=== PATIENT | female | born 1970 | race Caucasian/White ===

== ENCOUNTER → 2020-04-09 09:56 | Outpatient (BNVA) | payer OTHER, SELFPAY | PROVIDERS: PCP Internal Medicine; Visit Provider Hospitalist | DX: Z76.89 Persons encountering health services in other specified circumstances (principal) ==

== ENCOUNTER 2020-04-13 15:55 | Outpatient (REF) | payer OTHER, SELFPAY | END 2020-04-13 15:56 | disposition home or self-care (01) | LOC: HO.CT 15:55 | PROVIDERS: PCP Internal Medicine; Visit Provider Hospitalist | DX: I26.99 Other pulmonary embolism without acute cor pulmonale (principal); R07.81 Pleurodynia ==

== ENCOUNTER 2020-05-08 07:50 | Outpatient (REF) | payer OTHER, SELFPAY ==
--- NOTE | 2020-05-08 07:52 | CT_ITS ---
EXAMINATION: CT ANGIOGRAM OF THE CHEST WITH AND WITHOUT CONTRAST (CT PULMONARY ANGIOGRAM FOR PE) CLINICAL INFORMATION: Reason for Exam I26.99 - Other pulmonary embolism without acute cor pulmonal COMPARISON: None TECHNIQUE: Prior to contrast administration, noncontrast localization images were obtained. Subsequently, multidetector volumetric imaging was performed from the thoracic inlet to below the diaphragms following the administration of 70 mLOmnipaque 350 intravenous contrast. No contrast reaction reported Sagittal, coronal, and MIP oblique sagittal reformatted images were obtained on the CT workstation, uploaded to PACS, and reviewed. This CT examination was performed using dose optimization techniques as appropriate, variously including the following: *Automated exposure control *Adjustment of mA and/or kV according to patient size (this includes techniques or standardized protocols for targeted exams where dose is matched to indication/reason for exam; i.e. extremities or head) *Use of iterative reconstruction technique Total exam dose-length product 187 mGy-cm FINDINGS: QUALITY OF STUDY/CONTRAST BOLUS: Satisfactory. PULMONARY ARTERIES: No central or segmental pulmonary emboli. THORACIC AORTA: No aneurysm or dissection. LUNG: The lungs are well-expanded and clear of acute process. There are small scattered pulmonary cysts in both upper lobes. PLEURA: No pleural effusion or pneumothorax. MEDIASTINUM: Normal heart size. No pericardial effusion. No hilar or mediastinal lymphadenopathy. No evidence of septal bowing or right heart strain. CHEST WALL/AXILLA: No axillary or internal mammary lymphadenopathy. OSSEOUS STRUCTURES: No acute or suspicious osseous abnormality. There is mild spondylosis dorsal spine. UPPER ABDOMEN: Visualized liver and spleen is unremarkable, No reflux of contrast into the hepatic veins to suggest elevated right heart pressures. CT/CT angio chest PE protocol IMPRESSION: No evidence of PE. No evidence of aortic dissection or aneurysm. Small pulmonary cysts in both upper lobes. VTE: Negative.
[2020-05-08] MEDS: iohexoL 350 MG/ML 100 ML INFUS..BTL IV (09:04)
== END 2020-05-08 07:51 | disposition home or self-care (01) ==
LOC: HO.CT 07:50
PROVIDERS: PCP Internal Medicine; Visit Provider Hospitalist
DX: I26.99 Other pulmonary embolism without acute cor pulmonale (principal)
CPT/HCPCS: 71275

== ENCOUNTER → 2020-08-07 09:01 | Outpatient (BNVA) | payer OTHER, SELFPAY | PROVIDERS: PCP Internal Medicine; Visit Provider Hospitalist ==

== ENCOUNTER → 2020-08-21 08:36 | Outpatient (BNV) | payer OTHER, SELFPAY | PROVIDERS: PCP Internal Medicine; Visit Provider Internal Medicine | DX: I26.99 Other pulmonary embolism without acute cor pulmonale (principal) | CPT/HCPCS: 99213; 99214 ==

== ENCOUNTER → 2021-02-11 14:57 | Outpatient (BNVA) | payer OTHER, SELFPAY | PROVIDERS: PCP Internal Medicine; Visit Provider Internal Medicine Cardiovascular Disease | DX: I27.82 Chronic pulmonary embolism (principal); R00.0 Tachycardia, unspecified | CPT/HCPCS: 93005 ==

== ENCOUNTER → 2021-08-30 13:59 | Outpatient (BNVA) | payer OTHER, SELFPAY | PROVIDERS: PCP Internal Medicine; Visit Provider Hospitalist ==

== ENCOUNTER 2021-10-17 10:47 | Outpatient (REF) | payer OTHER, SELFPAY ==
--- NOTE | ~2021-10-17 | XR_ITS ---
EXAMINATION: XR CHEST CLINICAL INFORMATION: J98.4 - Other disorders of lung COMPARISON: Chest radiographs 03/19/2020, 12/09/2019, CTA chest 04/13/2020 TECHNIQUE: 2 views of the chest were obtained. FINDINGS: The lungs are clear. The vascularity is normal. There is no airspace consolidation or groundglass opacity or effusion. The heart is normal in size. The hilar and mediastinal contours are normal. No visible acute bony abnormality. XR/XR chest 2V IMPRESSION: Unremarkable examination.
== END 2021-10-17 10:48 | disposition home or self-care (01) ==
LOC: HO.XRAY 10:47
PROVIDERS: PCP Internal Medicine; Visit Provider Hospitalist
DX: R07.81 Pleurodynia (principal); J98.4 Other disorders of lung
CPT/HCPCS: 71046

== ENCOUNTER → 2022-01-31 11:19 | Outpatient (BNVA) | payer OTHER, SELFPAY | PROVIDERS: PCP Internal Medicine; Visit Provider Internal Medicine Cardiovascular Disease | DX: R06.02 Shortness of breath (principal); R00.0 Tachycardia, unspecified; I27.82 Chronic pulmonary embolism | CPT/HCPCS: 93005 ==

== ENCOUNTER → 2022-03-12 09:20 | Outpatient (REF) | payer OTHER, SELFPAY ==
--- NOTE | 2022-03-12 09:23 | CA_ITS ---
Transthoracic Echocardiogram Patient (Last, First, Middle): Anay Singletary, Gender: Female Date of : 1970 Age: 51 Procedure Date: 03/12/2022 Procedure Type: Transthoracic Echocardiogram Location: OP Height: 157.48 cm Weight: 107.5 kg BSA: 2.05 m2 Heart Rate: 55 bpm BP: 120 / 70 mmHg Brazing Machine Feeder: JEAN Referring MD: Americo De La Vega MD Ip Litigation Associate: Americo De La Vega MD Symptoms: R06.02 - Shortness of breath Study Quality: Adequate ECG Rhythm: Bradycardia Conclusions: - 1. Normal LV systolic and diastolic function 2. Mild mitral regurgitation 3. No gross pericardial effusion Findings Left Ventricle Normal left ventricular size, thickness, and systolic function. The visually estimated ejection fraction is between 55-60%. Spectral Doppler is indicative of a normal filling pattern. Peak GLS is -16.4%, which is marginally reduced. Right Ventricle Normal right ventricular cavity size and systolic function. Atria Both atria are normal in size. There is lipomatous hypertrophy of the interatrial septum. Interatrial shunt cannot be excluded. Aortic Valve Normal aortic valve structure and function. There is no aortic valve stenosis. There is no aortic valve regurgitation. Mitral Valve Normal mitral valve structure and function. There is mild mitral valve regurgitation. There is no mitral valve stenosis. Pulmonic Valve The pulmonic valve was not well visualized. Tricuspid Valve Likely normal tricuspid valve structure and function. There is trace tricuspid valve regurgitation. Tricuspid regurgitation envelope is inadequate for calculation of right ventricular systolic pressure. Normal right atrial pressure. Great Vessels All visible segments of the aorta are normal in size. The pulmonary artery was not well visualized. Venous The inferior vena cava is normal in size and collapses greater than 50% with inspiration. Pericardium/Pleural There is no evidence of pericardial effusion. Prior Study Comparison No significant change compared to prior study dated: 01/12/2020. Measurements 2D Linear Measurements IVSd: 0.78 0.6-0.9/0.6-1.0 cm LVIDd: 5.26 3.9-5.3/4.2-5.9 cm LVIDd Index: 2.57 2.4-3.2/2.2-3.1 cm/m2 LVIDs: 3.17 2.0-3.6 cm LVPWd: 0.61 0.7-1.1 cm LA Diam: 4.10 2.7-3.8/3.0-4.0 cm LAIDs Index: 2.00 1.5-2.3 cm/m2 LV Mass: 153.53 67-162/88-224 g LV Mass Index: 74.89 43-95/49-115 g/m2 LVOT Diam: 2.00 3.0+(-)1.3 cm 2D Systolic Function EF 4C: 50.70 >55% EF 2C: 63.80 >55% EF BiP: 59.00 >55% Mitral Valve MV Pk E: 0.71 MV PK A: 0.30 MV Decel Time: 218.00 E/A: 2.40 E'Lateral: 13.70 E'Medial: 9.25 E/E' Med: 7.70 E/E' Lat: 5.20 PHT: 64.00 MVA PHT: 3.44 Decel Berrien: 3.27 Aortic Valve AoV Pk Jerome: 1.40 AoV Mn Jerome: 1.03 AoV VTI: 0.34 AoV Pk Grad: 8.00 Aov Mn Grad: 5.00 MAYRA Cont.VTI: 2.03 LVOT LVOT Pk Jerome: 0.84 LVOT Mn Jerome: 0.63 LVOT VTI: 0.22 LVOT Pk Grad: 3.00 LVOT Mn Grad: 2.00 LVOT Diam: 2.00 LVOT Area: 3.14 Diastolic Function MV Pk E: 0.71 MV Pk A: 0.30 E/A: 2.40 E'Medial: 9.25 E/E' Med: 7.70 E' Laterial: 13.70 E/E' Lat: 5.20 Right Ventricle TAPSE (mm): 18.90 TVS' Jerome: 10.90 Tricuspid Valve RA Press: 3.00 Great Vessels Aorta Sinus of Valsalva: 3.00 2.0-3.5 cm Ao Asc: 3.60 2.1-3.4 cm Ao Arch: 2.60 Pulmonary Veins Pulm Vein S/D 1.00 Pulmonary Valve PV Pk Jerome: 0.83 Peak PV Grad: 3.00 Updated in Other Vendor System with Status of Final Americo De La Vega MD electronically signed on 03/12/2022 10:57:12 AM with status of Final
== END ==
LOC: HO.CARD 09:20
PROVIDERS: PCP Internal Medicine; Visit Provider Internal Medicine Cardiovascular Disease
DX: R06.02 Shortness of breath (principal)
CPT/HCPCS: 93306; 93356

== ENCOUNTER → 2022-10-03 14:23 | Outpatient (BNVA) | payer OTHER, SELFPAY | PROVIDERS: PCP Internal Medicine; Visit Provider Hospitalist | DX: Z13.89 Encounter for screening for other disorder (principal) ==

== ENCOUNTER 2022-10-24 07:22 | Outpatient (REF) | payer OTHER, SELFPAY ==
--- NOTE | ~2022-10-24 | CT_ITS ---
EXAMINATION: CT CHEST WITHOUT CONTRAST CLINICAL INFORMATION: Lung cyst COMPARISON: Previous chest CT May 2020 TECHNIQUE: Multidetector volumetric CT imaging of the chest was done. Axial MIP volume rendering provided. Sagittal and coronal reformatted images were obtained. This CT examination was performed using dose optimization techniques as appropriate, variously including the following: *Automated exposure control *Adjustment of mA and/or kV according to patient size (this includes techniques or standardized protocols for targeted exams where dose is matched to indication/reason for exam; i.e. extremities or head) *Use of iterative reconstruction technique DLP: 277 mGy-cm FINDINGS: LUNGS: There are 3 small lung cysts in the left upper lobe largest measuring 1 x 1.5 cm axial image 16 series 3. These do not appear appreciably changed. The lungs are otherwise clear. MEDIASTINUM: The mediastinum is normal. CORONARY ARTERY CALCIFICATION: None visualized on this study. PLEURA: There is no pleural effusion. No pleural mass or thickening. AXILLA: No lymphadenopathy. UPPER ABDOMEN: Unremarkable. OSSEOUS STRUCTURES: Degenerative changes of the spine. CT/CT chest wo IV con IMPRESSION: Stable small lung cysts in the left upper lobe. Fleischner guidelines were followed.
== END 2022-10-24 07:23 | disposition home or self-care (01) ==
LOC: HO.CT 07:22
PROVIDERS: PCP Internal Medicine; Visit Provider Hospitalist
DX: J98.4 Other disorders of lung (principal)
CPT/HCPCS: 71250

== ENCOUNTER 2023-02-02 09:43 | Outpatient (AMB) | payer OTHER, SELFPAY ==
--- NOTE | 2023-02-02 09:44 | A.OFFVIS_ITS ---
Intake Vital Signs 02/02/23 09:45 Height 5 ft 2 in Weight 249 lb 1.957 oz BMI 45.6 Blood Pressure Location Lt brachial Position Sitting Pulse 65 Intake Visit Reasons: 1 YEAR FOLLOW UP Intake Note: 1 year follow-up with ekg feeling ok vinay has palpitations but not new Hyperbaric Nurse Required: No Allergies adhesive [ADHESIVE] Allergy (Unknown, Verified 10/03/22 14:29) BURN Medication List - Last Reconciled 02/02/23 by Americo De La Vega MD apixaban 5 mg PO BID levonorgestrel (Mirena) 20 mcg intrauterine DAILY metoprolol succinate ER 25 mg PO DAILY rosuvastatin (Crestor) 5 mg PO DAILY semaglutide (weight loss) (Wegovy) mg subcut HPI HPI Comments History of Present Illness Details Anay comes for follow-up. In September she had major cervical spine surgery due to herniated disc compressing on the nerve roots as well as the spinal cord. She underwent urgent surgery for the same. She still recuperating from the same. Her pain has mostly resolved. Since then she complains of acid reflux symptoms mostly at rest. No exertional symptoms. Still has symptoms of palpitations but they are much improved and not very bothersome. She continues to take oral anticoagulation therapy for PE. She denies any lightheadedness, syncope. No exertional shortness of breath, orthopnea, PND. Currently exerc ising on a regular basis. [facility] Medical History Cystic-bullous disease of lung Inappropriate sinus tachycardia Lung cyst Pleuritic chest pain Pulmonary embolism PVCs (premature ventricular contractions) Surgical History History of repair of ACL Family History Father No problems noted. Mother Murmur, heart Social History Household Members: None Housing: Condominium Alcohol intake: former Patient Tobacco Use Status: Never used Tobacco service: No Current occupational status: employed Review of Systems Const Denies chills, Denies fatigue, Denies fever(s), Denies frequent falls, Denies weakness, Denies weight gain and Denies weight loss ENT Denies dizziness Card Denies chest pain, Denies leg edema, Denies lightheadedness, Denies palpitations, Denies dyspnea, Denies dyspnea on exertion, Denies orthopnea and Denies other (loss of consciousness) Resp Denies cough, Denies dyspnea and Denies dyspnea on exertion GI Denies hematochezia and Denies change in stool character Musc Denies abnormal gait, Denies muscle weakness, Denies numbness, Denies radiating pain into limb and Denies tingling Neuro Denies abnormal gait, Denies dizziness, Denies frequent falls, Denies numbness, Denies tingling and Denies weakness Endo Denies fatigue and Denies palpitations Physical Exam Vital Signs: Last Vital Signs Pulse 65 02/02/23 09:45 BMI result Body Mass Index 45.6 Const General: cooperative, comfortable, no acute distress, alert, awake and well groomed Nutritional Appearance: obese Orientation/consciousness: patient oriented x3 Limitations: no limitations Neck Neck: Yes trachea midline, Yes supple and Yes no JVD Resp Effort & Inspection: normal respiratory effort Auscultation: clear to auscultation bilaterally Cardio Jugular venous distension: no JVD Palpation: normal PMI Rate: regular rate Rhythm: regular rhythm Heart sounds: S1 normal heart sound present, S2 normal heart sound present, no click, no gallops, no murmurs and no rubs GI Auscultation: normal bowel sounds Neuro General: patient oriented x3 and no focal motor deficits Extrem General: Yes no clubbing, cyanosis or edema Office Procedures EKG Details: EKG shows normal sinus rhythm nonspecific T-wave changes 13584-[id number], Complete Assessment & Plan Assessment & Plan (1) PVCs (premature ventricular contractions): Code(s): I49.3 - Ventricular premature depolarization Plan: PVCs as well as inappropriate sinus tachycardia both of them a control with low- dose metoprolol therapy. Heart rate is well controlled. Advised to maintain adequate hydration. Continue current metoprolol therapy. Avoidance of stimulants was discussed. Stress mitigation strategies were discussed advised to participate in regular physical activity. (2) Pulmonary embolism: Comment: Provoked event while being on estrogen therapy. Code(s): I26.99 - Other pulmonary embolism without acute cor pulmonale Qualifiers: Pulmonary embolism type: other Chronicity: chronic Acute cor pulmonale presence: without acute cor pulmonale Qualified Code(s): I27.82 - Chronic pulmonary embolism Plan: Prior history of extensive pulmonary embolism, with no clinical recurrence on Eliquis therapy. She is doing well from the same perspective. Continue the same. Semi annual renal function test should be pursued. I agree with indefinite use of oral anticoagulation therapy unless she developed significant bleeding complication. Will follow up in the clinic 1 year's time, sooner p.r.n.. Thank you for allowing me to partake in her care Coding Level of Care Code Est Pt Level 3 (37143) Diagnoses PVCs (premature ventricular contractions) I49.3 Pulmonary embolism I27.82 Pulmonary embolism type: other Chronicity: chronic Acute cor pulmonale presence: without acute cor pulmonale CPT Codes EKG - CPT: 23943-[id number], Complete ([id number])
[2023-02-02 09:45] VITALS: PULSE 65; BMI 45.6
== END 2023-02-02 10:07 | disposition home or self-care (01) ==
PROVIDERS: Visit Provider Internal Medicine Cardiovascular Disease
DX: I49.3 Ventricular premature depolarization (principal); I27.82 Chronic pulmonary embolism
CPT/HCPCS: 93010; 99213

== ENCOUNTER → 2023-02-02 09:43 | Outpatient (BNVA) | payer OTHER, SELFPAY | PROVIDERS: Visit Provider Internal Medicine Cardiovascular Disease | DX: I49.3 Ventricular premature depolarization (principal); I27.82 Chronic pulmonary embolism | CPT/HCPCS: 93005 ==

== ENCOUNTER 2023-10-30 14:44 | Outpatient (AMB) | payer OTHER, SELFPAY ==
[2023-10-30 14:46] VITALS: PULSE 73; O2SAT 99; BMI 46.9
--- NOTE | 2023-10-30 14:46 | MHC.OFFVIS ---
Vital Signs 10/30/23 14:46 Height 5 ft 2 in Weight 256 lb 6.362 oz BMI 46.9 Pulse 73 Pulse Source Pulse Oximeter Pulse Oximetry (%) 99 Oxygen Delivery Method Room Air Intake Visit Reasons: PE Cage Maker Required: No Allergies adhesive [ADHESIVE] Allergy (Unknown, Verified 10/30/23 14:50) BURN HPI Comments Details: the patient is a 53-year-old woman with a known history of pulmonary emboli. Overall she is doing well she is back to exercising regularly. She does complaint of left-sided pleuritic chest pain at times. Usually when taking a deep breath in. She has tolerated the anticoagulation with the Eliquis without any difficulties. She has had repeat V/Q scan still demonstrating persistent defect in the left upper lobe area. The patient was referred to [facility], where she had a level 1 cardiopulmonary stress test. It appeared that she did very well. 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 Based on the fact that she is still having chest discomfort in the fact that she has an abnormal V/Q scan in the same area I will resend her to have a repeat CTA. 08/25/2020 the patient has a telephone visit. Overall the patient has been doing better. Her left-sided pleuritic discomfort has improved after 90 days of indomethacin. She now completed a course of indomethacin. Hopefully she does 90 to going this medication again. She continues on the Eliquis 5 mg twice a day. Her CT scan of the chest PE protocol was reassuring without any evidence of any further clot formation. The pulmonary cyst also appeared to be stable. She did follow up in [place] and they are monitoring her pulmonary embolisms and also following up with Hematology regarding her he hypercoagulable state. My recommendation for her to stay on the full dose anticoagulation for least a year. Then, after completing a year she can consider stopping and recheck in a D-dimer 4 weeks or just decreasing the dose to 2.5 mg twice a day of the Eliquis as a prophylactic dose. The patient has had issues with heavy menses and also has been complaining of thinning of her hair. 08/30/2021 the patient has a telephone visit today. Overall she is doing well from a respiratory status. She denies any chest pains or shortness of breath. Her pleuritic chest discomfort has resolved completely. She did follow-up with Hematology. They rather keep her on the 5 mg twice a day of the Eliquis at this time. Therefore I will leave it up to the patient and Hematology to decide the dose. In the meantime we did review her last CT scan of the chest that was more than a year ago demonstrating cystic lung disease. At this point is not clear the etiology of the cystic lung disease. At this point if there is any progression of the cystic lung disease then additional diagnostic intervention will be required. I am hopeful though that the cystic lung disease has not worsen and we can just monitor. She continues having heavy menses but now better controlled now that she has an IUD. 10/03/2022 the patient is here for a pulmonary follow-up visit. She is doing well from a respiratory status. Denies any shortness of breath. Her major complaint is that pain with what appears to be hyper paresthesias down the right arm. She has been evaluated with MRI and likely get some intervention. The patient is aware that on Eliquis she would have to stop the Eliquis for at least 3 days prior to any interventions. We also talked about the dose. Currently on 5 mg twice a day. Already been almost 3 years since her blood clots. I did recommend she can decrease the dose to 2.5 twice a day. The patient is however happy with her does and she is not looking to change unless she has any issues. That is perfectly fine at this time. In addition to this the patient does have a CT scan demonstrating cystic lung disease. The patient will need a repeat CT scan to address the cystic lungs in to make sure that this is not progressing. If it is progressing that when further interventions may be warranted to try to find out the etiology of this is. If the cystic lung disease is appears to be stable then no further intervention is warranted. 10/30/2023 the patient is here for pulmonary follow-up visit. The patient overall has been doing well from a respiratory status. Denies any respiratory limitations. She did have surgery for her cervical disc herniation. She tolerated surgery well she does have some issues with dysphagia but the often. She is back on the Eliquis 5 mg twice a day. She is followed closely by Hematology and the recommendation is for her to continue lifelong anticoagulation. The patient did have a CT scan of the chest which I personally reviewed. Last CT scan was back in 2022 and was compared to previous CT scan from 2020. It appears that the cystic lesions have not changed in many years and therefore stable. No additional testing is warranted. No other abnormalities noted. The patient will continue following closely with Hematology. If the patient develops any worsening respiratory symptoms she will call we can also reassess her imaging studies. In addition to that she does have some difficulty with her weight. She has been struggling also with chronic fatigue. Can not find an etiology of the symptoms. We did talk about different potential therapies to evaluate her. Consider sleep study she did try CPAP in the past although it was hard for her to tolerate and sleep apnea component was very mild. Also something to consider as hypersomnia. She can consider multiple latency sleep study to see if there is any component of hypersomnia. [facility] Medical History Cystic-bullous disease of lung PVCs (premature ventricular contractions) Inappropriate sinus tachycardia Lung cyst Pleuritic chest pain Pulmonary embolism Surgical History (Updated 06/26/23 @ 10:22 by Trista Madison MD) H/O neck surgery History of repair of ACL Family History Father No problems noted. Mother Murmur, heart Social History Household Members: None Housing: Condominium Alcohol intake: former Patient Tobacco Use Status: Never used Tobacco service: No Current occupational status: employed Review of Systems Const Denies chills, Denies fatigue, Denies fever(s), Denies frequent falls, Denies weakness, Reports weight gain and Denies weight loss ENT Denies dizziness and Reports neck pain Card Denies chest pain, Denies leg edema, Denies lightheadedness, Denies palpitations, Denies dyspnea, Denies dyspnea on exertion, Denies orthopnea and Denies other (loss of consciousness) Resp Denies cough, Denies dyspnea and Denies dyspnea on exertion GI Denies hematochezia and Denies change in stool character Musc Denies abnormal gait, Reports back pain, Denies muscle weakness, Reports neck pain, Reports radiating pain into limb and Reports tingling Neuro Denies abnormal gait, Denies dizziness, Denies frequent falls, Reports tingling and Denies weakness Endo Denies fatigue and Denies palpitations Physical Exam Vital Signs: Last Vital Signs Pulse 73 10/30/23 14:46 Pulse Ox 99 10/30/23 14:46 Oxygen Delivery Method Room Air 10/30/23 14:46 BMI result Body Mass Index 46.9 Const General: alert HEENT General nose exam: Abnormal external nose present and Nasal discharge present Eyes Pupils: Equal, round and reactive pupils present Neck Neck: Yes normal visual inspection, Yes full ROM and Yes no lymphadenopathy Chest Chest palpation & inspection: normal inspection of the chest Resp Effort & Inspection: normal respiratory effort Auscultation: clear to auscultation bilaterally Cardio Rate: regular rate Rhythm: regular rhythm Heart sounds: S1 normal heart sound present and S2 normal heart sound present GI Palpation (GI): Soft to palpation and nontender Auscultation: normal bowel sounds General: Yes no CVA tenderness Back/Spine/Pelvis Back: no CVA tenderness Skin General skin exam: rashes and/or lesions noted Neuro Cranial nerves: Yes Equal, round and reactive pupils present Assessment & Plan Assessment & Plan (1) Pulmonary embolism: Comment: Provoked event while being on estrogen therapy. Code(s): I26.99 - Other pulmonary embolism without acute cor pulmonale Category: Medical Qualifiers: Acute cor pulmonale presence: without acute cor pulmonale Chronicity: chronic Pulmonary embolism type: other Qualified Code(s): I27.82 - Chronic pulmonary embolism (2) Cystic-bullous disease of lung: Code(s): J98.4 - Other disorders of lung Category: Medical (3) Lung cyst: Code(s): J98.4 - Other disorders of lung Category: Medical Plan Continue Eliquis. Will need to stop the Eliquis for 3 days prior to any semi-invasive and invasive interventions. Consider decreasing Eliquis to prophylactic dose. The patient more comfortable on the full dose no imaging at this point CT chest stable from 2019 to 2022 F/U as needed Coding Level of Care Code Est Pt Level 4 (04080) Diagnoses Other chronic pulmonary embolism without acute cor pulmonale I27.82 Acute cor pulmonale presence: without acute cor pulmonale Chronicity: chronic Pulmonary embolism type: other Cystic-bullous disease of lung J98.4 Lung cyst J98.4 Time Spent (min) 16
== END 2023-10-30 15:17 | disposition home or self-care (01) ==
PROVIDERS: PCP Internal Medicine; Visit Provider Hospitalist
DX: I27.82 Chronic pulmonary embolism (principal); J98.4 Other disorders of lung
CPT/HCPCS: 99214

== ENCOUNTER → 2023-10-30 14:44 | Outpatient (BNVA) | payer OTHER, SELFPAY | PROVIDERS: PCP Internal Medicine; Visit Provider Hospitalist ==

== ENCOUNTER 2024-02-22 14:34 | Outpatient (AMB) | payer OTHER, SELFPAY ==
[2024-02-22 14:48] VITALS: BP 120/64; PULSE 72; BMI 46.4
--- NOTE | 2024-02-22 14:48 | A.OFFVIS_ITS ---
Vital Signs 02/22/24 14:48 Height 5 ft 2 in Weight 253 lb 8.505 oz BMI 46.4 BP 120/64 Blood Pressure Location Lt brachial Position Sitting Pulse 72 Pulse Source Monitor Intake Visit Reasons: 1 year follow up Intake Note: 1 yr f/up Stripper Soft Plastic Required: No Accompanied by: Self / Same As Patient Allergies adhesive [ADHESIVE] Allergy (Unknown, Verified 10/30/23 14:50) BURN Medication List - Last Reconciled 02/22/24 by Americo De La Vega MD apixaban 5 mg PO BID metoprolol succinate ER 25 mg PO DAILY rosuvastatin (Crestor) 5 mg PO DAILY tirzepatide (weight loss) (Zepbound) mg subcut HPI Comments Details: Anay comes for follow-up. No new cardiac symptoms. She occasionally feels symptoms of PVCs/palpitations. No prolonged tachycardia symptoms. She also has not had any recurrent PE on now lifelong oral anticoagulation therapy, being followed by Hematology. She has intermittent episodes of diffuse body pain also has intermittent chest pain which is not exertional related. No lightheadedness, syncope. Tolerating her medications well. She says her main struggle currently he has not been able to lose weight. [facility] Medical History Cystic-bullous disease of lung PVCs (premature ventricular contractions) Inappropriate sinus tachycardia Lung cyst Pleuritic chest pain Pulmonary embolism Surgical History H/O neck surgery History of repair of ACL Family History Father No problems noted. Mother Murmur, heart Social History Household Members: None Housing: Condominium Alcohol intake: former Patient Tobacco Use Status: Never used Tobacco service: No Current occupational status: employed [employer] Const Denies chills, Denies fatigue, Denies fever(s), Denies frequent falls, Denies weakness, Denies weight gain and Denies weight loss ENT Denies dizziness Card Denies chest pain, Denies leg edema, Denies lightheadedness, Denies palpitations, Denies dyspnea and Denies dyspnea on exertion Resp Denies cough, Denies dyspnea and Denies dyspnea on exertion GI Denies hematochezia Musc Denies abnormal gait, Denies muscle weakness, Denies numbness, Denies radiating pain into limb and Denies tingling Neuro Denies abnormal gait, Denies dizziness, Denies frequent falls, Denies numbness, Denies tingling and Denies weakness Endo Denies fatigue and Denies palpitations Physical Exam Vital Signs: Last Vital Signs Pulse 72 02/22/24 14:48 BP 120/64 02/22/24 14:48 BMI result Body Mass Index 46.4 Const General: cooperative, comfortable, no acute distress, alert, awake and well groomed Nutritional Appearance: obese Orientation/consciousness: patient oriented x3 Limitations: no limitations Neck Neck: Yes trachea midline, Yes supple and Yes no JVD Resp Effort & Inspection: normal respiratory effort Auscultation: clear to auscultation bilaterally Cardio Jugular venous distension: no JVD Palpation: normal PMI Rate: regular rate Rhythm: regular rhythm Heart sounds: S1 normal heart sound present, S2 normal heart sound present, no click, no gallops, no murmurs and no rubs GI Auscultation: normal bowel sounds Neuro General: patient oriented x3 and no focal motor deficits Extrem General: Yes no clubbing, cyanosis or edema Office Procedures EKG Details: EKG shows normal sinus rhythm at 72 beats per minute with nonspecific T-wave flattening [id number], Complete Assessment & Plan Assessment & Plan (1) PVCs (premature ventricular contractions): Code(s): I49.3 - Ventricular premature depolarization Category: Medical Plan: Inappropriate sinus tachycardia as well as isolated PVCs, symptomatic currently doing well with metoprolol therapy. Tolerating this therapy well. She has intermittent symptoms of PVCs that are not very bothersome. At this point time no further change in therapy is recommended. Continue to participate in stress mitigation strategies. Avoidance of stimulants was discussed. Pulmonary embolism, unprovoked being treated by Hematology team and on lifelong Eliquis therapy at this point in time. Will follow up in the clinic in 1 year's time, sooner p.r.n.. Thank you for allowing me to partake in the care Coding Level of Care Code Est Pt Level 3 (13074) Diagnoses PVCs (premature ventricular contractions) I49.3 CPT Codes EKG - CPT: 46492-[id number], Complete ([id number])
== END 2024-02-22 15:17 | disposition home or self-care (01) ==
PROVIDERS: PCP Internal Medicine; Visit Provider Internal Medicine Cardiovascular Disease
DX: I49.3 Ventricular premature depolarization (principal)
CPT/HCPCS: 93010; 99213

== ENCOUNTER → 2024-02-22 14:34 | Outpatient (BNVA) | payer OTHER, SELFPAY | PROVIDERS: PCP Internal Medicine; Visit Provider Internal Medicine Cardiovascular Disease | DX: I49.3 Ventricular premature depolarization (principal); Z86.711 Personal history of pulmonary embolism; Z79.01 Long term (current) use of anticoagulants | CPT/HCPCS: 93005 ==

== ENCOUNTER 2025-02-23 15:06 | Outpatient (AMB) | payer OTHER, SELFPAY ==
--- NOTE | 2025-02-23 15:07 | MHC.OFFVIS ---
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 From cardiac perspective she was done well with symptoms of palpitation. She has been exercising extensively but has not been able to lose much weight although she is currently on GLP 1 antagonist and has lost about 45 lb herself as per her. She denies any exertional chest pain or shortness of breath. Takes all her medications. She was currently on full oral anticoagulation as prescribed by Hematology team for life. She is contemplating hormonal replacement therapy. [facility] Medical History Cystic-bullous disease of lung PVCs (premature ventricular contractions) Inappropriate sinus tachycardia Lung cyst Pleuritic chest pain Pulmonary embolism Surgical History H/O neck surgery History of repair of ACL Family History Father No problems noted. Mother Murmur, heart Social History Household Members: None Housing: Condominium Alcohol intake: former Patient Tobacco Use Status: Never used Tobacco service: No Current occupational status: employed [employer] Const Denies chills, Denies fatigue, Denies fever(s), Denies frequent falls, Denies weakness, Denies weight gain and Denies weight loss ENT Denies dizziness Card Denies chest pain, Denies leg edema, Denies lightheadedness, Denies palpitations, Denies dyspnea, Denies dyspnea on exertion, Denies orthopnea and Denies other (loss of consciousness) Resp Denies cough, Denies dyspnea and Denies dyspnea on exertion GI Denies hematochezia and Denies change in stool character Musc Denies abnormal gait, Denies muscle weakness, Denies numbness, Denies radiating pain into limb and Denies tingling Neuro Denies abnormal gait, Denies dizziness, Denies frequent falls, Denies numbness, Denies tingling and Denies weakness Endo Denies fatigue and Denies palpitations Physical Exam Vital Signs: Last Vital Signs Pulse 65 02/23/25 15:08 BP 110/68 02/23/25 15:08 BMI result Body Mass Index 38.7 Const General: cooperative, comfortable, no acute distress, alert, awake and well groomed Nutritional Appearance: obese Orientation/consciousness: patient oriented x3 Limitations: no limitations Neck Neck: Yes trachea midline, Yes supple and Yes no JVD Resp Effort & Inspection: normal respiratory effort Auscultation: clear to auscultation bilaterally Cardio Jugular venous distension: no JVD Palpation: normal PMI Rate: regular rate Rhythm: regular rhythm Heart sounds: S1 normal heart sound present, S2 normal heart sound present, no click, no gallops, no murmurs and no rubs GI Auscultation: normal bowel sounds Neuro General: patient oriented x3 and no focal motor deficits Extrem General: Yes no clubbing, cyanosis or edema Office Procedures EKG Details: EKGs normal sinus rhythm with nonspecific ST changes [id number]-[id number], Complete Assessment & Plan Assessment & Plan (1) PVCs (premature ventricular contractions): Code(s): I49.3 - Ventricular premature depolarization Category: Medical Plan: PVCs as well as inappropriate sinus tachycardia very well controlled on low-dose beta-winnie therapy which she was tolerating well. At this point in time I would continue with metoprolol therapy. Avoidance of stimulants was discussed. Stress mitigation strategies were discussed. No change in therapy. Advised to continue maintain adequate hydration. Continue to participate in physical activity as tolerated. (2) Pulmonary embolism: Comment: Provoked event while being on estrogen therapy. Code(s): I26.99 - Other pulmonary embolism without acute cor pulmonale Category: Medical Qualifiers: Pulmonary embolism type: other Chronicity: chronic Acute cor pulmonale presence: without acute cor pulmonale Qualified Code(s): I27.82 - Chronic pulmonary embolism Plan: Prior history of unprovoked pulmonary embolism without any obvious etiology. Has been seen by Hematology and been prescribed full oral anticoagulation for life. Continue Eliquis. Continue follow with Hematology. Will follow up in the clinic in 1 year's time, sooner p.r.n.. Thank you for allowing me to partake in her care Coding Level of Care Code Est Pt Level 4 (65839) Complex EM visit Add On G2211 Diagnoses PVCs (premature ventricular contractions) I49.3 Other chronic pulmonary embolism without acute cor pulmonale I27.82 Pulmonary embolism type: other Chronicity: chronic Acute cor pulmonale presence: without acute cor pulmonale CPT Codes EKG - CPT: 44761-[id number], Complete ([id number])
[2025-02-23 15:08] VITALS: BP 110/68; PULSE 65; BMI 38.7
--- OUTSIDE RECORDS SUMMARY | 2025-02-23 15:09 | XMS_ITS | Patient Health Record ---
Author Organization [facility] [place] Address [address] [place] [address] Care Team Providers Care Incoming Freight Clerk Name Role Phone Compa Mason MD Primary Care Provider Jose Roberto Paz Unavailable [phone] Allergies Allergen (clinical drug ingredient) Drug/Non Drug Allergy documented on EMR Reaction Allergy Type Onset Date Status adhesive tape rash/blisters Drug Allergy Active Reason For Referral No Information Medications Medication SIG (Take, Route, Frequency, Duration) Notes Start Date End Date Status Contraceptive Sponge contr ol pills not sponge - DAILY Active Metoprolol Tartrate 50 MG Orally Active Physical Therapy . . . 2-3x/week; Duration: 3-4 weeks 08/21/2017 Active Social History Tobacco Use: Social History Observation Description Date Details (start date - stop date) Never Smoker NA - NA Tobacco Use/Smoking Question Answer Notes Are you a: nonsmoker Additional Findings: Tobacco Non-User Current no n-smoker Alcohol Screen Question Answer Notes Did you have a drink contain ing alcohol in the past year? Yes How often did you have a dri nk containing alcohol in the past year? Monthly or less (1 point) Points 1 Interpretation Negative Tobacco use other than smoking: Question Answer Notes Are you an other tobacco user? No Plan Of Treatment No Information Insurance Providers Payer Name Payer Address Payer Phone Subscriber Number Group Number Insured Name Patient Relationship to Insured Coverage Start Date Coverage End Date Cigna [address] TYREE Lozano [phone] [id number] Anay Singletary Self - patient is the insured 7 Medical (General) History Medical History History ICD Code Chicken pox Tachycardia Surgical History Surgery Date(Month/Year) ACL replacement 07/2007
--- OUTSIDE RECORDS SUMMARY | 2025-02-23 15:09 | XMS_ITS | Clinical Summary ---
Author Organization [facility] Address [address] [place] [address] Care Team Providers Care Sack Filler Name Role Phone Unavailable Primary Care Provider Unavailabl e Social History Tobacco Use Types Packs/Day Years Used Date Smoking Tobacco: Never Assessed Sex and Gender Information Value Date Recorded Sex Assigned at Not on file Gender Identity Not on file Sexual Orientation Not on file Plan of Treatment Not on file
--- OUTSIDE RECORDS SUMMARY | 2025-02-23 15:09 | XMS_ITS | Clinical Summary ---
Author Organization [facility] Address [address] [place] [address] Phone Care Team Providers Care Gaming Floor Supervisor Name Role Phone Alexis Narayanan MD Primary Care Provider [phone] Allergies Active Allergy Reactions Criticality Noted Date Comments Adhesive 02/03/2020 Medications apixaban (ELIQUIS) 5 mg tablet Take 5 mg by mouth 2 (two) times a day. Active metoprolol tartrate (LOPRESSOR) 25 MG tablet Take 25 mg by mouth daily. Active indomethacin (INDOCIN) 25 MG capsule Take 1 capsule (25 mg total) by mouth 3 (three) times a day with meals. 270 capsule 05/04/2020 Active Active Problems Problem Noted Date Diagnosed Date Cardiac dysrhythmia 02/03/2020 Bilateral pulmonary embolism 02/03/2020 Right ventricular dysfunction 02/03/2020 History of acute cor pulmonale 02/03/2020 Anticoagulated by anticoagulation treatment 01/05 Overweight 02/03/2020 PVC (premature ventricular contraction) 02/03/20 20 History of oral contraceptive use 02/03/2020 SVT (supraventricular tachycardia) 02/03/2020 Pleuritic chest pain 02/03/2020 Fatigue 02/03/2020 Activities involving golf 02/03/2020 Family History Medical History Relation Comments Heart attack Maternal Grandfather Pulmonary embolism Mother Stroke Mother Diabetes Neg Hx Relation Status Comments Maternal Grandfather Mother Social History Tobacco Use Types Packs/Day Years Used Date Smoking Tobacco: Never Cigarettes Smokeless Tobacco: Never Comments:smoked while in [place] Alcohol Use Standard Drinks/Week Comments Not Currently 0 (1 standard drink = 0.6 oz pur e alcohol) Education Answer Date Recorded Are you interested in more education? Not on [place] e 10/31/2022 Are you concerned about learning? Not on file 10/31/2022 No 10/31/2022 No 10/31/2022 Digital Access Answer Date Recorded No 11/29/2022 No 11/29/2022 Reliable internet access at home? Not on file 11/29/2022 Device with a working camera? Not on file Comments Unknown Sex and Gender Information Value Date Recorded Sex Assigned at Female 01/17/2020 11:39 AM EDT Legal Sex Female 11:32 AM EDT Gender Identity Female 01/17/2020 11:39 AM EDT Sexual Orientation Straight 01/17/2020 11 :39 AM EDT Last Filed Vital Signs Vital Sign Reading Time Taken Comments Blood Pressure 110/74 02/03/2020 12:31 PM EDT Pulse 78 02/03/2020 12:31 PM EDT Temperature 36.9 C (98.4 F) 02/03/2020 12:31 PM EDT Respiratory Rate - - Oxygen Saturation - - Inhaled Oxygen Concentration - - Weight 105.7 kg (233 lb) 03/15/2020 11:12 AM EDT Height - - Body Mass Index - - Plan of Treatment Health Maintenance Due Date Last Done Comments Adult Td,Tdap Booster 1971 CREATININE LEVEL 1971 LIPID PANEL 1971 HEPATITIS C SCREENING 10/08/1989 HIV ONE-TIME SCREENING (18-6 5 YEARS) 10/08/1989 PAP SMEAR 10/08/1992 MAMMOGRAM 2011 COLOGUARD 10/08/2016 COLONOSCOPY 10/08/2016 COLORECTAL CANCER SCREENING 10/08/2016 FIT TEST 10/08/2016 FOBT 10/08/2016 SIGMOIDOSCOPY 10/08/2016 VIRTUAL COLONOSCOPY 10/08/2016 DEPRESSION SCREENING 02/02/2021 02/03/2020 PNEUMOCOCCAL VACCINES (50+ years) (1 of 1 - PCV) 10/08/2021 ZOSTER VACCINES (1 of 2) 10/08/2021 COVID-19 VACCINE (3 - 2023-2 5 season) 2024 09/29/2020, 09/01/2020 SMOKING STATUS SCREENING (On ce After 26 Yrs) Completed 02/03/2020 HEPATITIS A VACCINES Aged Out No long er eligible based on patient's age to complete this topic HIB VACCINES Aged Out No longer eligi ble based on patient's age to complete this topic MENINGOCOCCAL VACCINES (ACWY) Aged Out No longer eligible based on patient's age to complete this topic MENINGOCOCCAL VACCINES (B) Aged Out N o longer eligible based on patient's age to complete this topic Medical Devices Not on file [facility] [employer] [facility] CIG HMO POS CIG HMO POS CIGNA HMO POS Care Teams Gaming Floor Supervisor Relationship Specialty Start Date End Date Alexis Narayanan MD [address] [place] [id number] PCP - General Internal Medicine 01/17/20 Additional Source Comments The information contained in this document represents components of the legal health record. It is not the complete legal health record.[facility]
== END 2025-02-23 16:08 | disposition home or self-care (01) ==
LOC: HO.HCS 15:06
PROVIDERS: PCP Internal Medicine; Visit Provider Internal Medicine Cardiovascular Disease
DX: I49.3 Ventricular premature depolarization (principal); I27.82 Chronic pulmonary embolism
CPT/HCPCS: 93010; 99214

== ENCOUNTER → 2025-02-23 15:06 | Outpatient (BNVA) | payer OTHER, SELFPAY | PROVIDERS: PCP Internal Medicine; Visit Provider Internal Medicine Cardiovascular Disease | DX: I49.3 Ventricular premature depolarization (principal); I27.82 Chronic pulmonary embolism | CPT/HCPCS: 93005 ==